=== PATIENT | male | born 1970 | race Caucasian/White ===

== ENCOUNTER 2017-02-23 10:27 | Emergency (ER) | payer SELFPAY ==
[~2017-02-23] VITALS: Ht 185.4 cm; Wt 77.3 kg
[~2017-02-23 10:27] MED LIST: ASPI1TAB69 PO; BENT20TA PO; PANT20 PO; VENTAER INH; ZITHTAB PO
[2017-02-23 10:29] VITALS: BP 147/65; PULSE 85; RESP 14; TEMP 98.3; O2SAT 100
== END 2017-02-23 12:04 | disposition left against medical advice (07) ==
LOC: NEPD 10:27
DX: J00 Acute nasopharyngitis [common cold] (principal); Z53.21 Procedure and treatment not carried out due to patient leaving prior to being seen by health care provider
CPT/HCPCS: 99281